=== PATIENT | female | born 1990 | race Caucasian/White ===

== ENCOUNTER 2023-03-19 18:28 | Inpatient (IN) | payer MEDICARE ==
[~2023-03-19] VITALS: Ht 165.1 cm; Wt 95.7 kg
[2023-03-19] MEDS ORDERED: ZOLPIDEM TARTRATE 10 MG TABLET PO PRN (18:45)
[2023-03-19] MEDS ORDERED: HALOPERIDOL 5 MG TABLET PO PRN (18:45)
[2023-03-19] MEDS ORDERED: LORazepam 2 MG TABLET PO PRN (18:45)
[2023-03-19] MEDS ORDERED: INFLUENZA VIRUS VACCINE QVS 2023-24 (6MO+)/PF 60 MCG/0.5 ML SYRINGE IM. ONE (20:00)
[2023-03-19] MEDS ORDERED: LORazepam 2 MG/ML VIAL ONE (20:06)
[2023-03-19] MEDS ORDERED: HALOPERIDOL LACTATE 5 MG/ML VIAL ONE (20:06)
[2023-03-19] MEDS ORDERED: DiphenhydrAMINE HCL 50 MG/ML VIAL ONE (20:06)
[2023-03-19] MEDS ORDERED: LORazepam 2 MG/ML VIAL IM ONE (20:15)
[2023-03-19] MEDS ORDERED: HALOPERIDOL LACTATE 5 MG/ML VIAL IM ONE (20:15)
[2023-03-19] MEDS ORDERED: DiphenhydrAMINE HCL 50 MG/ML VIAL IM ONE (20:15)
[2023-03-19 20:46] VITALS: BP 105/55; PULSE 71; RESP 18; TEMP 97.8; O2SAT 99
[2023-03-19 20:46] LABS: GLUCOMETER DEV NAME(LOC) POC.BV; POC SARS-COV2 AG, FIA NEGATIVE (NEGATIVE)
[2023-03-20] MEDS ORDERED: NICOTINE 14 MG/24 HOUR PATCH TD PRN (06:45)
[2023-03-20] MEDS ORDERED: ACETAMINOPHEN 325 MG TABLET PO PRN (06:45)
[2023-03-20] MEDS ORDERED: ALBUTEROL SULFATE HFA 90 MCG/PUFF 8 GM INHALER IH PRN (06:45)
[2023-03-20] MEDS ORDERED: MAG HYDROX/ALUMINUM HYD/SIMETH ES 30 ML SUSPENSION UDCUP PO PRN (06:45)
[2023-03-20] MEDS ORDERED: ONDANSETRON HCL 4 MG TABLET PO PRN (06:45)
[2023-03-20] MEDS ORDERED: CloNIDine HCL 0.1 MG TABLET PO PRN (06:45)
[2023-03-20] MEDS ORDERED: MAGNESIUM HYDROXIDE SUSPENSION 30 ML UDCUP PO PRN (06:45)
[2023-03-20] MEDS ORDERED: LOPERAMIDE HCL 2 MG CAPSULE PO PRN (06:45)
[2023-03-20] MEDS ORDERED: DOCUSATE SODIUM 100 MG CAPSULE PO PRN (06:45)
[2023-03-20] MEDS ORDERED: IBUPROFEN 400 MG TABLET PO PRN (06:45)
[2023-03-20] MEDS ORDERED: GuaiFENesin/D-METHORPHAN [SUGAR-FREE] 200-20MG/10 ML SYRUP UDCUP PO PRN (06:45)
[2023-03-20] MEDS ORDERED: PETROLATUM,WHITE 28 GM JELLY TP PRN (06:45)
[2023-03-20 08:26] VITALS: BP 134/69; PULSE 100; RESP 18; TEMP 98.4; O2SAT 97
[2023-03-20] MEDS: RisperiDONE 1 MG TABLET PO SCH ×2 (16:19→17:00)
[2023-03-20 20:04] VITALS: BP 125/67; PULSE 95; RESP 17; TEMP 98.3; O2SAT 100
[2023-03-21] MEDS: RisperiDONE 1 MG TABLET PO SCH ×3 (08:18→16:50)
[2023-03-21 08:41] VITALS: RESP 18
[2023-03-21 21:15] VITALS: BP 134/86; PULSE 89; RESP 18; TEMP 97.8
[2023-03-22] MEDS: RisperiDONE 1 MG TABLET PO SCH ×2 (08:57→16:33)
[2023-03-22 21:11] VITALS: BP 122/76; PULSE 76; RESP 18; TEMP 98.2; O2SAT 99
[2023-03-23 09:00] VITALS: BP 122/77; PULSE 100; RESP 18; TEMP 98.4; O2SAT 98
[2023-03-23] MEDS: RisperiDONE 1 MG TABLET PO SCH (09:00)
== END 2023-03-23 12:03 | disposition left against medical advice (07) | DRG 885 ==
LOC: B3A 18:39
PROVIDERS: ADMIT Psychiatry & Neurology Psychiatry; ATTEND Psychiatry & Neurology Psychiatry
PROC: GZHZZZZ Group Psychotherapy (ICD-10-PCS; principal; 2023-03-21)
PROC: GZ51ZZZ Individual Psychotherapy, Behavioral (ICD-10-PCS; 2023-03-21)
DX: F20.9 Schizophrenia, unspecified (principal); Z20.822 Contact with and (suspected) exposure to COVID-19; E66.3 Overweight; I95.9 Hypotension, unspecified; Z68.35 Body mass index [BMI] 35.0-35.9, adult; Z79.899 Other long term (current) drug therapy
CPT/HCPCS: J1200; J1630; J2060